=== PATIENT | male | born 1985 | race African-American/Black ===

== ENCOUNTER 2021-08-05 08:27 | Emergency (ER) | payer OTHER ==
[2021-08-05] MEDS ORDERED: Ketorolac Tromethamine 30 MG/ML VIAL ONE (09:36)
[2021-08-05] MEDS ORDERED: Cyclobenzaprine 10 MG TAB ONE (09:36)
== END 2021-08-05 10:08 | disposition home or self-care (01) ==
LOC: ERS 08:27
DX: S16.1XXA Strain of muscle, fascia and tendon at neck level, initial encounter (principal); F17.210 Nicotine dependence, cigarettes, uncomplicated; V89.2XXA Person injured in unspecified motor-vehicle accident, traffic, initial encounter
CPT/HCPCS: 96372; 99283; J1885